=== PATIENT | male | born 1990 | race Caucasian/White ===

== ENCOUNTER 2016-12-28 16:34 | Emergency (ER) | payer SELFPAY ==
[~2016-12-28] VITALS: Ht 180.3 cm; Wt 68.0 kg
[2016-12-28 16:36] VITALS: BP 128/85; PULSE 85; RESP 14; TEMP 98.1; O2SAT 99
--- NOTE | 2016-12-28 18:09 | PD ---
HPI Chief Complaint: Laceration/Skin Injury Time Seen by Provider: 17:40 Travel History International Travel<30 days: No Contact w/Intl Traveler<30days: No Traveled to known affect area: No History of Present Illness HPI 26-year-old male presents emergency department for evaluation of laceration to right wrist. Patient reports his uncle threw him a sign with a sharp metal edge which cut his right wrist while he was attempting to catch it. The bleeding is well-controlled. Patient denies numbness/tingling/weakness in the extremity. Patient reports only mild pain at the site of the laceration. No aggravating or alleviating factors. Symptoms severity mild PFSH Past Medical History Medical History: Denies Significant Hx Tetanus Vaccination: > 5 Years Influenza Vaccination: No Past Surgical History Surgical History: No Previous Surgery Social History Alcohol Use: No Tobacco Use: Yes (1 PPD) Substance Use: No Allergies-Medications (Allergen,Severity, Reaction): Coded Allergies: Codeine (Verified Allergy, Intermediate, RASH, 12/28/16) Reported Meds & Prescriptions Reported Meds & Active Scripts Active No Active Prescriptions or Reported Medications Review of Systems Except as stated in HPI: all other systems reviewed are Neg General / Constitutional: No: Fever Eyes: No: Visual changes HENT: No: Headaches Cardiovascular: No: Chest Pain or Discomfort Respiratory: No: Shortness of Breath Gastrointestinal: No: Abdominal Pain Genitourinary: No: Dysuria Physical Exam Narrative GENERAL: Well-nourished, well-developed patient. SKIN: Focused skin assessment warm/dry. 1.5 cm laceration to right wrist medial aspects. Wound is superficial. No underlying tendon or vascular injury. Bleeding well controlled HEAD: Normocephalic. EYES: No scleral icterus. No injection or drainage. CARDIOVASCULAR: Regular rate and rhythm without murmurs, gallops, or rubs. RESPIRATORY: Breath sounds equal bilaterally. No accessory muscle use. MUSCULOSKELETAL: No cyanosis, or edema. 1.5 cm laceration to right wrist medial aspects. Wound is superficial. No underlying tendon or vascular injury. Bleeding well controlled. Patient has full range of motion and normal sensation in the digit. 2+ radial pulse. Data Data Last Documented VS Vital Signs Date Time Temp Pulse Resp B/P Pulse Ox O2 Delivery O2 Flow Rate FiO2 12/28/16 16:36 98.1 85 14 128/85 99 MDM Medical Decision Making Medical Screen Exam Complete: Yes Emergency Medical Condition: Yes Differential Diagnosis Laceration, clinically ruled out retained foreign body, clinically ruled out tendon or vascular injury Narrative Course 26-year-old male with an 0.5 cm laceration to right wrist medial aspect. The extremity is neurovascularly intact. The wound superficial. There is no retained foreign body. There is no vascular or tendon injury. Wound was sutured closed. Wound care and return precautions discussed with patient. He verbalizes understanding and agrees to plan Procedures Procedure Narrative LACERATION LOCATION: Right wrist medial aspect LENGTH: 1.5 cm NUMBER OF STITCHES/EZEQUIEL: To REPAIR: The area of the laceration was prepped with Betadine and sterilely draped. The laceration was infiltrated with Sent lidocaine with epi. The wound was copiously irrigated and explored without evidence of foreign body, tendon injury or neurovascular injury. The wound was closed using 4-0 Ethilon. This was a single layer repair. A sterile dressing was applied. The patient was advised to keep the dressing clean and dry. Patient tolerated the procedure well. Diagnosis Primary Impression: Wrist laceration Qualified Code: S61.511A - Wrist laceration, right, initial encounter Referrals: Primary Care Physician Additional Instructions: Do not submerge the wound in water. Sutures need to be removed in 7-10 days. Return to the emergency department if he developed new or worsening symptoms. Scripts No Active Prescriptions or Reported Meds Disposition: 01 DISCHARGE HOME Condition: Stable Nat Padilla Dec 28, 2016 18:09
[2016-12-28] MEDS ORDERED: TETANUS/DIPHTHERIA TOXOID ADULT 0.5 ML VIAL IM ONE (18:15)
== END 2016-12-28 18:26 | disposition home or self-care (01) ==
LOC: NEPK 16:34
DX: S61.511A Laceration without foreign body of right wrist, initial encounter (principal); F17.200 Nicotine dependence, unspecified, uncomplicated; W45.8XXA Other foreign body or object entering through skin, initial encounter; Z23 Encounter for immunization
CPT/HCPCS: 12001; 90471; 90714

== ENCOUNTER 2017-01-26 08:33 | Emergency (ER) | payer SELFPAY ==
[~2017-01-26] VITALS: Ht 180.3 cm; Wt 64.0 kg
[2017-01-26 08:35] VITALS: BP 140/75; PULSE 80; RESP 20; TEMP 98.1; O2SAT 99
--- NOTE | 2017-01-26 09:03 | PD ---
HPI Chief Complaint: Laceration/Skin Injury Time Seen by Provider: 09:03 Travel History International Travel<30 days: No Contact w/Intl Traveler<30days: No Traveled to known affect area: No History of Present Illness HPI 26-year-old male presents to emergency Department with complaint of a laceration to his left thumb while working on a metal sign. Denies decreased range of motion, decreased strength, paresthesias, loss of sensation to the affected finger. Is up-to-date on his tetanus vaccination. Bleeding is controlled. Has not taken any medications for symptom management. Allergies to codeine. Symptoms are mild in severity. Has no other medical complaints. No other modifying factors or associated signs and symptoms. PFSH Social History Alcohol Use: No Tobacco Use: Yes (1 PPD) Substance Use: No Allergies-Medications (Allergen,Severity, Reaction): Coded Allergies: codeine (Verified Allergy, Intermediate, RASH, 01/26/17) Reported Meds & Prescriptions Reported Meds & Active Scripts Active Ibuprofen 800 Mg Tab 800 Mg PO Q6HR PRN Review of Systems Except as stated in HPI: all other systems reviewed are Neg Physical Exam Narrative GENERAL: Well-nourished, well-developed male patient, in no acute distress SKIN: Warm and dry. Approximately 1 cm laceration over the volar aspect of the MCP joint of the left thumb; thumb with full range of motion and sensory intact ; without erythema, edema; finger with good opposition and less than 3 second cap refill. HEAD: Atraumatic. Normocephalic. EYES: Pupils equal and round. No scleral icterus. No injection or drainage. ENT: Mucosa pink and moist. Airway patent. NECK: Trachea midline. CARDIOVASCULAR: Regular rate. RESPIRATORY: No accessory muscle use. GASTROINTESTINAL: Flat. MUSCULOSKELETAL: No obvious deformities. No clubbing. No cyanosis. No edema. NEUROLOGICAL: Awake and alert. Oriented 3. No obvious cranial nerve deficits. Motor grossly within normal limits. Normal speech. PSYCHIATRIC: Appropriate mood and affect; insight and judgment normal. Data Data Last Documented VS Vital Signs Date Time Temp Pulse Resp B/P (MAP) Pulse Ox O2 Delivery O2 Flow Rate FiO2 01/26/17 10:27 01/26/17 08:35 98.1 80 20 99 Room Air Orders Orders Lidocaine 1% Inj (50 Ml) (Xylocaine 1% I (8/23/17 09:15) [facility] Medical Decision Making Medical Screen Exam Complete: Yes Emergency Medical Condition: Yes Medical Record Reviewed: Yes Differential Diagnosis Laceration, contusion, abrasion Narrative Course 26-year-old male with laceration of the left thumb. Up-to-date on tetanus vaccination. See my procedure note for laceration repair. Ibuprofen prescribed for home. Instructed patient to return to the emergency department or follow-up with primary care provider in 7-10 days for suture removal. Instructed patient to follow up with primary care provider. Patient verbalizes understanding and agreement with treatment plan. Patient is medically cleared and stable for discharge. Discussed reasons to return to the emergency department. Patient agrees with treatment plan. The patients vital signs are stable and the patient is stable for outpatient follow-up and treatment. Patient discharged home, stable and in no acute distress. Procedures Procedure Narrative LACERATION LOCATION: Left thumb LENGTH: 1 cm NUMBER OF STITCHES/EZEQUIEL: 3 simple interrupted sutures REPAIR: The area of the laceration was prepped with Betadine and sterilely draped. The laceration was infiltrated with 1% lidocaine. The wound was copiously irrigated and explored without evidence of foreign body, tendon injury or neurovascular injury. The wound was closed using 4-0 Prolene. This was a single layer repair. A sterile dressing was applied. The patient was advised to keep the dressing clean and dry. Patient tolerated the procedure well. Diagnosis Primary Impression: Laceration of thumb Qualified Codes: S61.012A - Laceration without foreign body of left thumb without damage to nail, initial encounter Referrals: [facility] Primary Care Physician Patient Instructions: Care For Your Stitches (ED), Finger Laceration (ED), General Instructions Departure Forms: Tests/Procedures Additional Instructions: Keep area clean and dry Limit left thumb activity to decrease risk of sutures coming undone done Ibuprofen or Tylenol as directed and as needed for pain and inflammation Ice pack to area as needed to decrease pain Return to the emergency department or follow-up with primary care provider in 7- 10 days for suture removal Follow up with primary care provider within 2-4 days Return to the emergency department immediately with worsening of symptoms, particularly if reddened streaks up or down the affected extremity from the suture site, fever, numbness/tingling in the affected extremity, loss of sensation in the affected extremity, severe swelling of the affected Med/Other Pt SpecificInfo: Prescription(s) given Scripts Ibuprofen (Ibuprofen) 800 Mg Tab 800 MG PO Q6HR Y for PAIN, #30 TAB 0 Refills Prov: Soumya Ibrahim 01/26/17 Disposition: 01 DISCHARGE HOME Condition: Stable Soumya Ibrahim Jan 26, 2017 09:03
[2017-01-26] MEDS ORDERED: LIDOCAINE HCL 1% 50 ML VIAL INFIL ONE (09:15)
[2017-01-26] MEDS ORDERED: IBUP800T23 PO (10:25)
== END 2017-01-26 10:39 | disposition home or self-care (01) ==
LOC: NEPK 08:33
DX: S61.012A Laceration without foreign body of left thumb without damage to nail, initial encounter (principal); W45.8XXA Other foreign body or object entering through skin, initial encounter; Y93.89 Activity, other specified
CPT/HCPCS: 12001